=== PATIENT | female | born 1995 | race African-American/Black ===

== ENCOUNTER 2021-04-10 09:12 | Emergency (ER) | payer OTHER ==
[2021-04-10 09:39] VITALS: RESP 18; TEMP 98
[2021-04-10] MEDS ORDERED: ACETAMINOPHEN TAB 325 MG TAB PO STA (09:42)
[2021-04-10] MEDS ORDERED: KETOROLAC 15 MG/ML 1 ML VIAL IM STA (10:03)
--- NOTE | 2021-04-10 11:34 | XR ---
EXAMINATION TYPE: XR ankle complete LT DATE OF EXAM: 04/10/2021 COMPARISON: NONE HISTORY: Pain FINDINGS: Three views of the ankle demonstrate spiral displaced fracture of the distal fibula with displaced me dial malleolar fracture in subluxation of the tibia relative to the talus. There is distortion of the ankle mortise. IMPRESSION: 1. Displaced medial malleolar fracture with distortion of the ankle mortise. 2. Spiral comminuted displaced fracture fibula.
--- NOTE | 2021-04-10 11:36 | XR ---
EXAMINATION TYPE: XR foot complete LT DATE OF EXAM: 04/10/2021 COMPARISON: NONE HISTORY: Pain TECHNIQUE: Three views are submitted. FINDINGS: Displaced fracture of the medial malleolus with spiral comminuted fracture with displacement. There i s soft tissue edema. IMPRESSION: 1. Displaced fracture medial malleolus. 2. Displaced spiral fracture distal fibula
--- NOTE | 2021-04-10 11:48 | XR ---
EXAMINATION TYPE: XR tibia fibula LT DATE OF EXAM: 04/10/2021 COMPARISON: NONE HISTORY: Pain TECHNIQUE: Two views are submitted. FINDINGS: Displaced spiral fracture distal fibula with displaced medial malleolar fracture and distortion of th e ankle mortise with subluxation of tibia relative to the talus. Soft tissue edema noted. IMPRESSION: 1. Displaced spiral fracture distal fibula. 2. Displaced medial malleolus fracture with distortion of the ankle mortise.
--- NOTE | 2021-04-10 12:35 | ED ---
General Adult HPI - General Chief complaint: Extremity Injury, Lower Stated complaint: slip & fall, ankle injury Time Seen by Provider: 04/10/21 09:39 Source: patient, family, RN notes reviewed, old records reviewed Mode of arrival: wheelchair Limitations: no limitations - History of Present Illness Initial comments: Patient is a 25-year-old female with no significant past medical history presents emergency Department after slipping and falling on ice earlier today. She states she was walking out the hospitalist on some steps, which she slipped and fell on ice and fell. He landed on her bottom, and believes she inverted her left ankle. Denies any loss conscious. Denies any injuries other than left ankle pain. Denies any headaches come back pain. Is not on blood thinners. Was unable to cannulate following the fall. Presents immersed department over concern for possible bony contributor left ankle. Denies any sensory deficits. Denies any numbness, but does endorse some weakness secondary to pain primarily in the left ankle. - Related Data Previous Rx's Medication Instructions Recorded HYDROcodone/APAP 5-325MG [[place] 1 tab PO Q6HR PRN 3 Days #12 tab 04/10/21 5-325] Allergies Allergy/AdvReac Type Severity Reaction Status Date / Time No Known Allergies Allergy Verified 04/10/21 11:09 Review of Systems ROS Statement: Those systems with pertinent positive or pertinent negative responses have been documented in the HPI. Review of Systems: CONST: Denies fever EYES: Denies blurry vision ENT: Denies nasal congestion C/V: Denies Chest pain RESP: Denies shortness of breath GI: Denies abdominal pain : Denies dysuria SKIN: Denies rash. MSK: Endorses Left ankle pain NEURO: Denies headache ROS Other: All systems not noted in ROS Statement are negative. Past Medical History Past Medical History: Hypertension Additional Past Medical History / Comment(s): Obstetric history: First was a vaginal delivery 6 pounds at 38 weeks she does have mild preeclampsia with this . Second was a voluntary termination. This is her third and she's had care with me since 11 weeks. Blood type is O+, antibodies negative, rubella immune, RPR nonreactive, hepatitis B-, normal 1 hour with us tolerance test. She's had hypertension only with and been on labetalol 100 mg bid. History of Any Multi-Drug Resistant Organisms: None Reported Past Surgical History: No Surgical Hx Reported Past Anesthesia/Blood Transfusion Reactions: No Reported Reaction Past Psychological History: No Psychological Hx Reported Smoking Status: Never smoker Past Alcohol Use History: None Reported Past Drug Use History: None Reported - Past Family History Father Family Medical History: No Reported History General Exam - General Exam Comments Initial Comments: General: Appears in mild distress secondary to left ankle pain. HEAD: Normal with no signs of head trauma. EYES: EOMI. Pupils are 3 mm and equal bilaterally. ENT: Hearing grossly intact. RESPIRATORY: Clear breath sounds bilaterally. No wheezes, rales, or rhonchi. C/V: Regular rate and rhythm. S1 and S2 auscultated, no edema, peripheral pulses 2+ and intact throughout . Intact DP and PT pulses in the left lower extremity. ABD: Abd is soft, nontender, nondistended EXT: Spinal tenderness to palpation. Reduced range of motion of the left ankle secondary to pain. It is swollen. Tenderness over the medial and lateral malleoli. Minimal foot tenderness as well. SKIN: No rashes or lesions observed on exposed skin. NEURO: Alert and oriented 4. No focal sensory strength deficits. Limitations: no limitations Course Vital Signs 04/10/21 04/10/21 04/10/21 09:34 11:33 13:37 Temperature 98.0 F Pulse Rate 95 83 80 Respiratory 18 18 18 Rate Blood Pressure 192/111 161/110 159/98 O2 Sat by Pulse 99 99 Oximetry Procedures - Orthopedic Splinting/Casting Injury #1 Side: left Lower Extremity Injury Location: short leg, ankle Lower Extremity Immobilizer: posterior splint, stirrup splint Other Orthopedic Equipment: crutches Medical Decision Making - Medical Decision Making Based on the patient's presentation and physical exam, I'm concerned for a fracture or bony trending conjunctiva patient's left ankle and leg. We will obtain plain film x-rays. I did offer the patient analgesia, and she received Tylenol as well as Toradol. She was in agreement this plan. Initial x-rays of the foot and ankle revealed a spiral fracture of the left fibula as well as a distal medial malleolus fracture with a small distortion of the ankle Mortise. We will obtain x-rays of the left tib-fib is home. I did reevaluate the patient, and former the fractures, as well as inform her that we will obtain further x-rays preaches in agreement this plan. Tib-fib x-ray showed no proximal fractures of the left tibia or fibula. At this time, I did contact the orthopedic surgeon on-call, Dr. Reyes who is okay with the patient following up outpatient. Patient will be splinted. She'll be given [place] as for pain control. She'll receive crutches. I instructed her to remain nonweightbearing. She was in agreement this plan. Patient did tolerate splint placement adequately. She received a posterior short leg splint with stirrups. Was neurovascularly intact following the splint placement. Is instructed to call orthopedic surgery later today or tomorrow morning. She was in agreement this plan. She did complete the opiate form. Patient received a prescription for crutches. I did inform the patient that she will require surgery I will provide the patient with a prescription for [place] 5. I instructed the patient to follow up with their PCP in the next 3 days. I provided contact information for follow up with Dr. Reyes. I explained that the patient should return to the emergency department if they experience any worsening symptoms. Strict return precautions were discussed with the patient. The patient expressed understanding of these instructions. I answered all questions that the patient had. The patient was discharged home in fair condition with their prescriptions and follow up information. Disposition Clinical Impression: Spiral fracture of shaft of fibula, Medial malleolar fracture Disposition: HOME SELF-CARE Condition: Fair Instructions (If sedation given, give patient instructions): Ankle Fracture (ED) Prescriptions: HYDROcodone/APAP 5-325MG [[place] 5-325] 1 tab PO Q6HR PRN 3 Days #12 tab PRN Reason: Pain Is patient prescribed a controlled substance at d/c from ED?: No When asked, does pt state using other controlled substances?: No If prescribed controlled substance>3 days was MAPS reviewed?: Prescribed <3 Days If opioid is for acute pain is fill amount 7 days or less?: Yes If Rx opioid, was Start Talking consent form obtained?: Yes Referrals: None,Stated [Primary Care Provider] - 1-2 days Yao Reyes, DO [Doctor of Osteopathic Medicine] - 1-2 days
[2021-04-10 13:45] VITALS: BP 159/98; PULSE 80
== END 2021-04-10 13:37 | disposition home or self-care (01) ==
LOC: EC 09:12
DX: S82.442A Displaced spiral fracture of shaft of left fibula, initial encounter for closed fracture (principal); S82.52XA Displaced fracture of medial malleolus of left tibia, initial encounter for closed fracture; I10 Essential (primary) hypertension; W01.0XXA Fall on same level from slipping, tripping and stumbling without subsequent striking against object, initial encounter; Y93.01 Activity, walking, marching and hiking
CPT/HCPCS: 73590; 73610; 73630; 99284; 96372; 29515; J1885

== ENCOUNTER → 2021-04-15 | Outpatient (CLI) | payer OTHER ==
[2021-04-15 15:09] LABS: INR 0.9 (<1.2); Partial Thromboplastin Time 26.2 sec (22.0-30.0); Prothrombin Time 10.2 sec (9.0-12.0)
[2021-04-15 18:21] LABS: Basophils # (A) 0.05 X 10*3/uL (0.00-0.10); Basophils % (A) 0.4 %; Eosinophils # (A) 0.04 X 10*3/uL (0.04-0.35); Eosinophils % (A) 0.3 %; HCT 37.7 % (37.2-46.3); HGB 12.4 g/dL (12.0-15.0); Immature Grans, Automated 0.4 %; Lymphocytes # (A) 2.25 X 10*3/uL (0.90-5.00); Lymphocytes % (A) 16.2 %; MCH 25.2 pg (27.0-32.0); MCHC 32.9 g/dL (32.0-37.0); MCV 76.5 fL (80.0-97.0); Monocytes # (A) 0.71 X 10*3/uL (0.20-1.00); Monocytes % (A) 5.1 %; NRBC Per 100 WBC 0 /100 WBCS (0.0-0.0); Neutrophils # (A) 10.76 X 10*3/uL (1.80-7.70); Neutrophils % (A) 77.6 %; Platelet Count 464 X 10*3/uL (140-440); RBC 4.93 X 10*6/uL (4.10-5.20); RDW 14.3 % (11.5-14.5); WBC 13.86 X 10*3/uL (4.50-10.00)
[2021-04-15 18:31] LABS: African American GFR (CKD) 117.1 (60.0-200.0); Albumin 4.5 g/dL (3.8-4.9); Albumin/Globulin Ratio 1.22 (1.60-3.17); Anion Gap 12.1 mmol/L (10.00-18.00); Blood Urea Nitrogen 16.8 mg/dL (9.0-27.0); Calcium 9.9 mg/dL (8.7-10.3); Carbon Dioxide 23.9 mmol/L (20.0-27.5); Globulin 3.7 g/dL (1.6-3.3); Total Bilirubin 0.3 mg/dL (0.30-1.20); Total Protein 8.2 g/dL (6.2-8.2)
== END | disposition home or self-care (01) ==
LOC: LABPAT 13:01
PROVIDERS: ATTEND Orthopaedic Surgery Orthopaedic Surgery of the Spine
DX: Z01.812 Encounter for preprocedural laboratory examination (principal); S82.892A Other fracture of left lower leg, initial encounter for closed fracture; Y99.9 Unspecified external cause status
CPT/HCPCS: 80053; 85025; 85610; 85730

== ENCOUNTER 2021-04-17 09:31 | Observation (INO) | payer OTHER ==
[2021-04-16 10:00] VITALS: BMI 31.6
[~2021-04-17 09:31] MED LIST: DEXAMETHASONE SOD PHOSPHATE 4 MG/ML 1 ML VIAL IV ONE; HYDROmorphone 0.5 MG/0.5 ML SYRINGE IVP PRN; LACTATED RINGERS 1,000 ML IV SCH; ONDANSETRON 4 MG/2 ML VIAL IVP ONE; ceFAZolin 1,000 MG in SODIUM CHLORIDE 0.9% IRRIGATIO 1,000 ML IRRIGATION PRN
[2021-04-17] MEDS ORDERED: MIDAZOLAM 2 MG/2 ML VIAL IVP ONE (10:08)
[2021-04-17] MEDS ORDERED: PROPOFOL 10 MG/ML 20 ML VIAL IV ONE (10:20)
[2021-04-17] MEDS ORDERED: fentaNYL (PF) 50 MCG/ML 2 ML AMP ONE (10:20)
[2021-04-17] MEDS ORDERED: DEXAMETHASONE SOD PHOSPHATE 10 MG/ML 1 ML VIAL ONE (10:20)
[2021-04-17] MEDS ORDERED: LIDOCAINE 1% INJ 10MG/ML (20 ML MDV) ONE (10:20)
[2021-04-17] MEDS ORDERED: MIDAZOLAM 2 MG/2 ML VIAL ONE (10:20)
[2021-04-17] MEDS ORDERED: ROPIVACAINE 5 MG/ML 30 ML VIAL ONE (10:20)
--- NOTE | 2021-04-17 12:12 | P.ANPRN ---
Procedure Note - Anesthesia - Nerve Block Performed Left Adductor Canal Single Time Out Performed: Yes Date of Procedure: 04/17/21 (1007) Procedure Start Time: 10:07 Procedure Stop Time: 10:11 Location of Patient: PreOp Indication: Requested by Surgeon Specifically requested for management of pain by DrJose: Yao Reyes Sedation Type: Sedate with meaningful contact maintained Preparation: Sterile Prep Position: Supine Needle Types: Pajunk Needle Gauge: 21 Ultrasound used to visualize needle placement: Yes Ultrasound used to observe medication spread: Yes Injectate: 0.5% Ropivacaine (see comment for volume) (20 cc + decadron 5 mg) Blood Aspirated: No Pain Paresthesia on Injection Noted: No Resistance on Injection: Normal Image Stored and Saved: Yes Events: Uneventful and Well Tolerated Left Popliteal Single Time Out Performed: Yes Date of Procedure: 04/17/21 Procedure Start Time: 10:13 Procedure Stop Time: 10:16 Location of Patient: PreOp Indication: Acute Post-Operative Pain, Dx/Pain Location (Right ankle), Requested by Surgeon Specifically requested for management of pain by DrJose: Yao Reyes Sedation Type: Sedate with meaningful contact maintained Preparation: Sterile Prep Position: Right Lateral Needle Types: Pajunk Needle Gauge: 21 Ultrasound used to visualize needle placement: Yes Ultrasound used to observe medication spread: Yes Injectate: 0.5% Ropivacaine (see comment for volume) (20 cc + decadron 5 mg) Blood Aspirated: No Pain Paresthesia on Injection Noted: No Resistance on Injection: Normal Image Stored and Saved: Yes Events: Uneventful and Well Tolerated
[2021-04-17] MEDS ORDERED: LACTATED RINGERS 1,000 ML IV ONE (12:44)
--- NOTE | 2021-04-17 13:04 | FL ---
Fluoroscopy HISTORY: Ankle fracture 89 seconds fluoroscopy time supplied to the referring clinician. 6 intraoperative C-arm images docum ent the procedure. See dictated report from orthopedic surgery.
[2021-04-17] MEDS ORDERED: BENZOCAINE/MENTHOL LOZENG 1 EACH LOZENGE MUCOUS MEM PRN (13:17)
[2021-04-17] MEDS ORDERED: HYDROcodone/APAP 5-325MG 1 EACH TAB PO PRN (13:17)
[2021-04-17] MEDS ORDERED: HYDROmorphone 1 MG/ML 1 ML SYRINGE IVP PRN (13:17)
[2021-04-17] MEDS ORDERED: MAGNESIUM HYDROXIDE 2,400 MG/10 ML CUP PO PRN (13:18)
[2021-04-17] MEDS ORDERED: NALOXONE 0.4 MG/ML 1 ML VIAL IV PRN (13:18)
[2021-04-17] MEDS ORDERED: ONDANSETRON 4 MG/2 ML VIAL IVP PRN (13:18)
--- NOTE | 2021-04-17 13:27 | P.OP ---
Date of Procedure: 04/17/21 Preoperative Diagnosis: Bimalleolar left ankle fracture with comminuted distal fibula fracture, status post fall acute traumatic Postoperative Diagnosis: Same Anesthesia: GETA Pathology: none sent Condition: stable Disposition: PACU Description of Procedure: BRIEF OPERATIVE NOTE Preoperative Diagnosis: Bimalleolar left ankle fracture with comminuted distal fibula fracture, status post fall acute traumatic Postoperative Diagnosis: Same Procedure: Open reduction internal fixation of right distal fibula fracture and medial malleolus fracture Use of fluoroscopic guidance Surgeon: Dr. Reyes Historical Site Guide: Figueroa Banda is present throughout the entire the case persistence during positioning, dissection, exposure, visualization, and all crucial elements of the case as well as closure. Anesthesia: General anesthesia Estimated blood loss: Less than 40 mL Tourniquet time: Approximately 100 minutes Specimen: None Complications: None apparent Components implanted: Synthes small frag one third semitubular 12 hole plate plate with screws with a combination of 3.5 cortical and 40 cancellus screws as well as medial malleolar 40 cannulated screws 2 Disposition: To recovery room in good stable condition. OPERATIVE INDICATIONS The patient had an acute injury several days ago when she slipped and fell on the ice. She had immediate pain and swelling in her left ankle. She had not had any pain or issues prior to her fall. She was evaluated and found have a comminuted distal fibula fracture with accompanying medial malleolus pain and subluxation at her ankle joint. She was seen in the emergency room and was neurologically intact and vascular intact as well. She was able to be splinted and followed up in our clinic where she had evaluation. We felt that she would be a good candidate for surgical intervention We did the best chance of healing. I felt that her best chance of healing would be to pursue open reduction internal fixation of distal fibula and medial malleolus I discussed the risk of occasions alternatives and benefits of surgery in relation to her injury. I discussed the risk of bleeding risk and infection risk and need for further surgery risk of decreased loss of motion loss function malunion nonunion hardware failure nerve damage as well as, occasions with surgery were explained. I answered her questions best my ability and she elected proceed with surgical intervention. OPERATIVE SUMMARY After discussing all the risks, patient alternatives and benefits at length, the patient elected to proceed with surgical intervention, signed informed consent, and presented for their procedure. The patient was seen and examined in the preoperative holding area and the surgical site was marked at the left lower extremity. The patient was given antibiotics and brought to the operating room. The patient was sedated and intubated by anesthesia in standard fashion. The patient was positioned on to the operating room table in a supine position with a pad under her right hip. We were careful to pad any bony prominences and pressure points. We were careful to maintain the patient's cervical spine and good neutral alignment and position throughout. We used C-arm machines to establish union fluoroscopic guidance in AP and lateral positions. We were able to localize the fractures appropriately. The patient was prepped and draped in a normal standard fashion. An appropriate timeout and keystone protocol performed. We were able to proceed with the surgery. An incision was made over the lateral aspect of the ankle and I dissected down to the distal fibula appropriately. The fracture was obvious and I was able to mobilize some of the fragments and elevated some of the periosteum leaving as much is intact as possible. There is comminution at the distal fibular shaft and is able to mobilize these fragments appropriately to get appropriate reduction. I performed a gentle reduction techniques in order to get the fractures well aligned and use of bone clamps to get good provisional fixation. I was able to get good near-anatomic position. This was confirmed with C-arm guidance. I placed interfragmentary screws 2 to establish some provisional stable fixation. The fracture was extensive and extended to the mid fibula. I was then able to measure and position a one third semitubular 12 hole plate and contoured appropriately over the distal fibula and over the fracture site proximally and distally. I establish an interfragmentary screw going from anterior to posterior across fracture site and good alignment and position with good bony fixation 2 as stated above. As able to remove the bone clamp in place the plate laterally and placed cortical screws proximally and cancellous screws distally to get excellent fixation at a near anatomic position. This was confirmed with C-arm guidance. I then addressed the medial malleolus fracture. I establish a incision over the medial aspect and anteriorly to medial malleolus. It was a smaller fragment which was difficult to miniplate and I had opened the area further deepened good bony margins to get excellent and provisional K wire fixation. With this unable to overdrill at the K wires for the cannulated screws. I was able get excellent reduction of the fracture and excellent fixation with the cannulated screws avoiding the ankle joint itself at the articular surface. I had excellent fixation and near-anatomic alignment and position. I performed medial and lateral varus and valgus stress at the ankle after fixation was performed and there is no evidence of any widening or displacement of the syndesmosis or the ankle mortise. I do not feel we needed any further fixation. We were able to proceed with closure. their areas were copiously irrigated and suctioned dry. Deep layers were closed with 2-0 Vicryl subcu tissues closed 2-0 Vicryl and skin was closed with 4-0 nylon. The wound was cleaned and dried and dressed with the appropriate dressing. I placed a sugar tong and posterior mold well-padded well molded splint at the right lower leg. The drapes were broken down. The patient was gently rolled back onto their hospital bed being careful to maintain their cervical spine and good neutral alignment and position. They were woken up by anesthesia, extubated, and brought to the recovery room in good stable condition. The patient will be able to be discharged from the hospital after appropriate observation due to and for appropriate postoperative care, medical management and monitoring. We will continue to follow them closely about the postoperative course. a plan see her back in the office in approximately 1 week's time or sooner if she is having problems.
[2021-04-17] MEDS ORDERED: LABETALOL SYRINGE 5 MG/ML IV ONE (15:40)
[2021-04-17] MEDS: SODIUM CHLORIDE 0.9% 1,000 ML IV SCH (18:02)
[2021-04-18] MEDS: SODIUM CHLORIDE 0.9% 1,000 ML IV SCH (02:29)
[2021-04-18 03:46] VITALS: RESP 17
[2021-04-18 07:28] VITALS: BP 170/115; PULSE 106; TEMP 98.3
--- NOTE | 2021-04-18 08:28 | P.DS ---
Providers Date of admission: 04/18/21 07:51 Attending physician: Yao Reyes Primary care physician: Stated None Hospital Course: The patient presented on the day of admission as per their operative note. She says her ankle is feeling more stable. She is able to move better with less pain but is still quite scared when she tries to move. She is with physical therapy right now and working on her mobility and making good improvements. Physical Exam The incision site is covered with the well-padded well molded splint and her toes are doing well they're pink with good cap refill and she has good motion of the area. There is no erythema no drainage. There is no purulence no evidence of infection. Abdomen soft and nontender. Chest has good excursion with deep inspiration and expiration. The patient has active and passive range of motion intact at the upper and lower extremities. There is no acute change in neurologic status. Her thigh is soft nontender Hospital Course Postoperative day #1 status post open reduction internal fixation of left ankle bimalleolar ankle fracture dislocation The patient has been making good progress postoperatively. They have completed the prophylactic antibiotics without any signs or symptoms of infection. The patient has been able to advance their diet, and is tolerating diet adequately. The pain was initially controlled with IV medications and is now controlled appropriately with oral medications. The patient has been able to increase their mobilization. She'll need to remain nonweightbearing on left lower extremity and she is doing much better with physical therapy as she starts mobilize with excellent help The patient has progressed appropriately. I think they are in good stable condition for discharge today. They will be sent home with appropriate prescriptions. I answered their questions to the best of my ability in a language that they can understand and they are agreeable with the plan. They will follow up as directed on Thursday for evaluation of the incision site and likely changing into a premium boot. Patient Condition at Discharge: Good Plan - Discharge Summary Discharge Rx Participant: No New Discharge Prescriptions: New HYDROcodone/APAP 5-325MG [[place] 5] 1 each PO Q6HR PRN #28 tab PRN Reason: Pain No Action HYDROcodone/APAP 5-325MG [[place] 5-325] 1 tab PO Q6HR PRN 3 Days #12 tab PRN Reason: Pain Discharge Medication List HYDROcodone/APAP 5-325MG [[place] 5-325] 1 tab PO Q6HR PRN 3 Days #12 tab 04/10/21 [Rx] HYDROcodone/APAP 5-325MG [[place] 5] 1 each PO Q6HR PRN #28 tab 04/17/21 [Rx] Follow up Appointment(s)/Referral(s): Yao Reyes DO [Doctor of Osteopathic Medicine] - 04/23/21 Patient Instructions/Handouts: *Surgery [facility] - (Anesthesia) Discharge Instructions Outpatient Surgery, ORIF of an Ankle Fracture (DC) Discharge Disposition: HOME SELF-CARE
== END 2021-04-18 12:10 | disposition home or self-care (01) ==
LOC: OR 09:31 → 4SSUR 16:53 → OR 04-18 07:51
PROVIDERS: ADMIT Orthopaedic Surgery Orthopaedic Surgery of the Spine; ATTEND Orthopaedic Surgery Orthopaedic Surgery of the Spine
DX: S82.842A Displaced bimalleolar fracture of left lower leg, initial encounter for closed fracture (principal); S82.831A Other fracture of upper and lower end of right fibula, initial encounter for closed fracture; W00.1XXA Fall from stairs and steps due to ice and snow, initial encounter; I10 Essential (primary) hypertension; Z82.49 Family history of ischemic heart disease and other diseases of the circulatory system; Z83.3 Family history of diabetes mellitus
CPT/HCPCS: 27814; 97161; 97166; 64445; 64447; 81025 ×2; 76942; 73600; G0378; C1713 ×2; J2250; J1100 ×2; J0690 ×3; J2405; J2001; J3010; J1170; J2795; J2704